=== PATIENT | female | born 1990 | race Caucasian/White ===

== ENCOUNTER 2018-09-12 11:44 | Emergency (ER) | payer SELFPAY ==
[2018-09-12] MEDS ORDERED: AMOXICILLIN/POTASSIUM CLAV 875MG/125MG TABLET PO ONE (12:19)
--- NOTE | 2018-09-12 12:21 | Emergency Department Record ---
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 Her Td is UTD and the cat's rabies shots are also UTD. She denies any numbness, tingling or weakness. MD Complaint: Animal bite Onset/Timin -: Minutes(s) Animal: Cat - Related Data Home Medications Medication Instructions Recorded Confirmed Last Taken Estradiol Cypionate 5 mg IM ASDIR 09/12/18 09/12/18 08/14/18 [Depo-Estradiol] Previous Rx's Medication Instructions Recorded Amoxicillin/Potassium Clav 1 each PO BID #14 tablet 09/12/18 [Augmentin 875Mg/125Mg] Allergies Allergy/AdvReac Type Severity Reaction Status Date / Time No Known Drug Allergies Allergy Verified 09/12/18 11:59 Travel Screening - Travel/Exposure Within Last 30 Days Have you traveled within the last 30 days?: No - Travel/Exposure Within Last Year Have you traveled outside the [place] in the last year?: No - Additonal Travel Details Have you been exposed to anyone with a communicable illness?: No - Travel Symptoms Symptom Screening: None Review of Systems Constitutional: Denies: Chills, Fever Eyes: Denies: Eye discharge ENT: Denies: Congestion Respiratory: Denies: Cough, Dyspnea Past Medical History - SOCIAL HISTORY Smoking Status: Never smoker Alcohol Use: Occasional Drug Use: None - RESPIRATORY Hx Respiratory Disorders: No - CARDIOVASCULAR Hx Cardio Disorders: No - NEURO Hx Neuro Disorders: Yes - GI Hx GI Disorders: No - Hx Genitourinary Disorders: Yes Hx UTI: Yes - ENDOCRINE Hx Endocrine Disorders: No - MUSCULOSKELETAL Hx Musculoskeletal Disorders: No - PSYCH Hx Psych Problems: No - HEMATOLOGY/ONCOLOGY Hx Hematology/Oncology Disorders: No Family Medical History Any Significant Family History?: No Physical Exam - General General Appearance: Alert, Cooperative, No acute distress - Head Head exam: Atraumatic, Normocephalic - Eye Eye exam: Normal appearance - Extremities Extremities exam: Full ROM, Tenderness. negative: Normal inspection (There are multiple very superficial bite wounds to the L hand. Rodolfo of the wounds appear deep thru the dermis. The L hand is NVI.), Joint swelling Course Vital Signs 09/12/18 11:53 Temperature 99.3 F Pulse Rate [ 85 Pulse Ox Probe] Respiratory 16 Rate Blood Pressure 112/68 [Left Arm] Pulse Ox 99 - Reevaluation(s) Reevaluation #1: The patient is doing very well. She did scrub up her L hand with a hibiclens sponge and sterile water. She is to keep the hand dry for 2 days and then obtain a wound recheck F/U in 2 days. 09/12/18 12:45 Disposition Disposition: Discharge Clinical Impression: Cat bite of hand Qualifiers: Encounter type: initial encounter Laterality: left Qualified Code(s): S61.452A - Open bite of left hand, initial encounter Disposition: Home, Self-Care Condition: (2) Stable Instructions: Animal Bite (ED) Additional Instructions: Please keep the hand clean and dry and take the Augmentin as directed. Please have the hand rechecked in 2 days to make sure there is no infection. Return to the ER for any signs of infection. Prescriptions: Amoxicillin/Potassium Clav [Augmentin 875Mg/125Mg] 1 each PO BID #14 tablet Forms: Patient Portal Access Time of Disposition: 12:49 Quality - Quality Measures Quality Measures: N/A - Blood Pressure Screening View Details: Yes Does Patient Have Any of the Following: No Blood Pressure Classification: Normal BP Reading Systolic Measurement: 112 Diastolic Measurement: 68 Screening for High Blood Pressure: < Normal BP, F/U Not Required > [G8783]
== END 2018-09-12 12:59 | disposition home or self-care (01) ==
LOC: ER 11:44
DX: S61.452A Open bite of left hand, initial encounter (principal); W55.01XA Bitten by cat, initial encounter; Y93.K9 Activity, other involving animal care; Y92.414 Local residential or business street as the place of occurrence of the external cause; Y99.0 Civilian activity done for income or pay
CPT/HCPCS: 99282; 99283

== ENCOUNTER 2018-09-13 08:42 | Observation (INO) | payer SELFPAY ==
[2018-09-13] MEDS ORDERED: AMPICILLIN SODIUM/SULBACTAM NA 3 G in 0.9 % SODIUM CHLORIDE 100ML 100 ML IVPB ONE (08:56)
--- NOTE | 2018-09-13 09:01 | Emergency Department Record ---
History of Present Illness - General Chief Complaint: Animal Bite Stated Complaint: CAT BITE Time Seen by Provider: 09/13/18 08:47 Source: Patient Mode of Arrival: Ambulatory Limitations: No limitations - History of Present Illness Initial Comments: The patient is here due to an infected cat bite to the L hand that occurred yesterday. She was bit in multiple places and did seek treatment here. Her wounds were cleansed and she was started on PO Abx's. Today the hand is swollen , tender, red and painful. Complaint: Animal bite Onset/Timin -: Days(s) Location - General: Other Animal: Cat Mechanism: Bite Pain Description: Sharp Severity scale (1-10): 8 Associated Symptoms: Erythema - Related Data Previous Rx's Medication Instructions Recorded Amoxicillin/Potassium Clav 1 each PO BID #14 tablet 09/12/18 [Augmentin 875Mg/125Mg] Allergies Allergy/AdvReac Type Severity Reaction Status Date / Time No Known Drug Allergies Allergy Verified 09/13/18 08:48 Travel Screening - Travel/Exposure Within Last 30 Days Have you traveled within the last 30 days?: No Past Medical History - SOCIAL HISTORY Smoking Status: Never smoker Alcohol Use: None Drug Use: None - RESPIRATORY Hx Respiratory Disorders: No - CARDIOVASCULAR Hx Cardio Disorders: No - NEURO Hx Neuro Disorders: Yes - GI Hx GI Disorders: No - Hx Genitourinary Disorders: Yes Hx UTI: Yes - ENDOCRINE Hx Endocrine Disorders: No - MUSCULOSKELETAL Hx Musculoskeletal Disorders: No - PSYCH Hx Psych Problems: No - HEMATOLOGY/ONCOLOGY Hx Hematology/Oncology Disorders: No Family Medical History Any Significant Family History?: No Physical Exam - General General Appearance: Alert, Oriented x3, Cooperative, No acute distress - Head Head exam: Atraumatic, Normocephalic - Eye Eye exam: Normal appearance, PERRL - Neck Neck exam: Normal inspection, Full ROM. negative: Tenderness - Respiratory Respiratory exam: Normal lung sounds bilaterally. negative: Respiratory distress - Cardiovascular Cardiovascular Exam: Regular rate, Normal rhythm, Normal heart sounds - Extremities Extremities exam: Tenderness (There is tenderness over the dorsal hand. ). negative: Normal inspection (There is dorsal L hand swelling, erythema and tenderness to the wrist. There is mild warmth. ), Full ROM (There is good ROM of the fingers with only mild pain. ) - Neurological Neurological exam: Alert. negative: Motor sensory deficit Course Vital Signs 09/13/18 08:49 Temperature 98.2 F Pulse Rate 88 Respiratory 16 Rate Blood Pressure 103/58 Pulse Ox 99 - Reevaluation(s) Reevaluation #1: Procedure note: The PW near the L 2nd MCP joint is very tender and there was significant purulence expressed from the wound and cultured. The L 2nd MCP PW was anesth. with Lido 1cc and the wound probed and lavaged. There was no further purulence expressed. 09/13/18 09:18 Reevaluation #2: I did discuss the case with Sarah and did discuss the need for admission for IV Abx's and she did accept. The patient also understands the plan. 09/13/18 09:19 Medical Decision Making - Lab Data Result diagrams: 09/13/18 09:00 09/13/18 09:00 Disposition Disposition: Admit Clinical Impression: Cellulitis Qualifiers: Site of cellulitis: other site Qualified Code(s): L03.818 - Cellulitis of other sites Disposition: Still a Patient at [facility] Decision to Admit: Admit from ER Decision to Admit Date: 09/13/18 Decision to Admit Time: 09:20 Time Discussed w/Accepting Physician: 09:20 Condition: (2) Stable Forms: Patient Portal Access Time of Disposition: 09:20 Quality - Quality Measures Quality Measures: N/A - Blood Pressure Screening View Details: Yes Does Patient Have Any of the Following: No Blood Pressure Classification: Normal BP Reading Systolic Measurement: 103 Diastolic Measurement: 58 Screening for High Blood Pressure: < Normal BP, F/U Not Required > [G8783]
[2018-09-13 09:07] LABS: BASO % 0.2 % (0-6); EOS % 0.6 % (0-6); GRAN % 77.8 % (47-80); HEMATOCRIT 39.6 % (35.0-47.0); LYMPH % 13.4 % (16-45); MEAN CELL VOLUME 95.2 fl (81-97); MEAN CORPUSCULAR HEMOGLOBIN 31.3 pg (27-33); MEAN CORPUSCULAR HGB CONC 32.8 g/dl (32-36); PLATELET COUNT 231 K/uL (130-400); RED BLOOD COUNT 4.16 M/uL (3.80-5.40); RED CELL DISTRIBUTION WIDTH 11.8 % (11.5-14.5); WHITE BLOOD COUNT W/O DIFF 12.4 K/uL (4.2-12.2)
[2018-09-13 09:18] LABS: BLOOD UREA NITROGEN 9 mg/dL (6-20); CREATININE 0.7 mg/dL (0.5-0.9); EST GLOMERULAR FILTRATION RATE > 60 mL/min
[2018-09-13 09:21] LABS: GLUCOSE,RANDOM 96 mg/dL (74-109)
[2018-09-13] MEDS ORDERED: ACETAMINOPHEN 325 MG TAB PO PRN (10:28)
[2018-09-13] MEDS ORDERED: AL HYDROX/MAG HYDROX 30ML UD PO PRN (10:28)
[2018-09-13] MEDS ORDERED: ESTRADIOL CYPIONATE 5 MG IM SCH (10:28)
[2018-09-13] MEDS: IBUPROFEN 400 MG TABLET PO PRN ×2 (10:49→19:08)
--- NOTE | 2018-09-13 10:57 | History & Physical ---
History of Present Illness - Date of Service Date of Service for History & Physical: 09/13/18 - History of Present Illness Admitting Diagnosis: 1. L Hand Cellulitis 2nd Cat Bite. History of Present Illness: Ms. Gamboa presented to the ED today for eval of an infected cat bite to the L hand that occurred yesterday. She was bit in multiple places and did seek treatment here. Her wounds were cleansed and she was started on PO Abx's ( augmentin- took 3 doses). Today the hand is swollen, tender, red and painful. In the ED, the PW near the L 2nd MCP joint is very tender and there was significant purulence expressed from the wound and cultured. The L 2nd MCP PW was anesth. with Lido 1cc and the wound probed and lavaged. There was no further purulence expressed. Pt. was admitted for observation for IV abx- unasyn. 09/13/18: Pt. is resting in bed and she presently denies pain. Plan to continue unasyn 3g q6h, will continue to reassess wound. PCP: Travel Screening - Travel/Exposure Within Last 30 Days Have you traveled within the last 30 days?: No - Travel/Exposure Within Last Year Have you traveled outside the [place] in the last year?: No - Additonal Travel Details Have you been exposed to anyone with a communicable illness?: No - Travel Symptoms Symptom Screening: None Past Medical History - SOCIAL HISTORY Smoking Status: Never smoker - RESPIRATORY Hx Respiratory Disorders: No - CARDIOVASCULAR Hx Cardio Disorders: No - NEURO Hx Neuro Disorders: Yes - GI Hx GI Disorders: No - Hx Genitourinary Disorders: Yes Hx UTI: Yes - ENDOCRINE Hx Endocrine Disorders: No - MUSCULOSKELETAL Hx Musculoskeletal Disorders: No - PSYCH Hx Psych Problems: No - HEMATOLOGY/ONCOLOGY Hx Hematology/Oncology Disorders: No Family Medical History Any Significant Family History?: No H&P Meds/Allergies - Allergies Allergies: Allergies Allergy/AdvReac Type Severity Reaction Status Date / Time No Known Drug Allergies Allergy Verified 09/13/18 08:48 - Home Medications Previous Rx's Medication Instructions Recorded Amoxicillin/Potassium Clav 1 each PO BID #14 tablet 09/12/18 [Augmentin 875Mg/125Mg] - Active Medications Active Medications: Current Medications Acetaminophen (Tylenol 325mg) 650 mg PO Q4H PRN PRN Reason: PAIN - MILD(1-4)/FEVER Al Hydroxide/Mg Hydroxide (Maalox) 30 ml PO Q4H PRN PRN Reason: ABDOMINAL PAIN Ampicillin Sodium/Sulbactam (Sodium 3 g/ Sodium Chloride) 100 mls @ 200 mls/hr IVPB Q6H MARTÍNEZ Ibuprofen (Motrin 400mg) 400 mg PO Q8H PRN PRN Reason: PAIN - MILD (1-4) Last Admin: 09/13/18 10:49 Dose: 400 mg Physical Exam - Vital Signs Vital Signs: Vital Signs - Last 24 Hrs Temp Pulse Resp BP Pulse Ox 09/13/18 08:49 98.2 F 88 16 103/58 99 - General General Appearance: Alert, Oriented x3, Cooperative, No acute distress Limitations: No limitations - Head Head exam: Atraumatic, Normocephalic - Eye Eye exam: Normal appearance, PERRL - Neck Neck exam: Normal inspection, Full ROM. negative: Tenderness - Respiratory Respiratory exam: Normal lung sounds bilaterally. negative: Respiratory distress - Cardiovascular Cardiovascular Exam: Regular rate, Normal rhythm, Normal heart sounds - Extremities Extremities exam: Tenderness (There is tenderness over the dorsal hand. ). negative: Normal inspection (There is dorsal L hand swelling, erythema and tenderness to the wrist. There is mild warmth. ), Full ROM (There is good ROM of the fingers with only mild pain. ) - Neurological Neurological exam: Alert. negative: Motor sensory deficit Results - Labs Result Diagrams: 09/13/18 09:00 09/13/18 09:00 Labs Last 24 Hours: Laboratory Results - last 24 hr 09/13/18 09/13/18 09:00 09:00 WBC 12.4 H RBC 4.16 Hgb 13.0 Hct 39.6 MCV 95.2 MCH 31.3 MCHC 32.8 RDW 11.8 Plt Count 231 MPV 10.0 Gran % 77.8 Lymphocytes % 13.4 L Monocytes % 8.0 Eosinophils % 0.6 Basophils % 0.2 Sodium 137 Potassium 3.9 Chloride 102 Carbon Dioxide 22.0 Anion Gap 13.0 BUN 9 Creatinine 0.7 Estimated GFR > 60 Random Glucose 96 Calcium 9.2 C-Reactive Protein 1.40 H VTE H&P Assessment - Risk for VTE Risk for VTE: Yes Risk Level: Very Low Risk Assessment Date: 09/13/18 Risk Assessment Time: 10:56 VTE Orders Placed or Will Be Placed: No VTE Reason for No Prophylaxis: Not Indicated (mobility not impaired) Plan - Detailed Diagnosis and Plan (1) Cellulitis Current Visit: Yes Status: Acute Qualifiers: Site of cellulitis: other site Qualified Code(s): L03.818 - Cellulitis of other sites Base Code: L03.90 - CELLULITIS, UNSPECIFIED Comment: 09/13/18: -Secondary from cat bite to left hand -Continue unasyn 3g q6h IV -Motrin 400mg q4h prn for pain -Wound culture obained in ED and pending (2) Full code status Current Visit: Yes Status: Acute Base Code: Z78.9 - OTHER SPECIFIED HEALTH STATUS Comment: 09/13/18: -Pt. is a full code
[2018-09-13] MEDS: AMPICILLIN SODIUM/SULBACTAM NA 3 G in 0.9 % SODIUM CHLORIDE 100ML 100 ML IVPB SCH ×2 (15:00→21:17)
[2018-09-14] MEDS: AMPICILLIN SODIUM/SULBACTAM NA 3 G in 0.9 % SODIUM CHLORIDE 100ML 100 ML IVPB SCH ×2 (02:51→09:26)
[2018-09-14 06:51] LABS: HEMOGLOBIN 12.3 gm/dl (11.6-16.0); MEAN CELL VOLUME 95.7 fl (81-97); MEAN CORPUSCULAR HGB CONC 32.4 g/dl (32-36); MEAN PLATELET VOLUME 10.4 fl (7.4-10.4); PLATELET COUNT 235 K/uL (130-400); RED BLOOD COUNT 3.97 M/uL (3.80-5.40); RED CELL DISTRIBUTION WIDTH 11.8 % (11.5-14.5); WHITE BLOOD COUNT W/O DIFF 10.2 K/uL (4.2-12.2)
[2018-09-14 07:01] LABS: ALB/GLOB RATIO 1.4 (1.1-1.8); ALBUMIN 4.2 g/dL (4.0-5.0); ALKALINE PHOSPHATASE 68 U/L (35-104); ALT/SGPT 9 U/L (<33); AST/SGOT 13 U/L (10.0-35.0); BLOOD UREA NITROGEN 8 mg/dL (6-20); CREATININE 0.8 mg/dL (0.5-0.9); EST GLOMERULAR FILTRATION RATE > 60 mL/min; GLUCOSE,RANDOM 109 mg/dL (74-109); TOTAL PROTEIN 7.1 g/dL (6.6-8.7)
[2018-09-14 07:04] LABS: PLATELET ESTIMATE NORMAL (NORMAL)
[2018-09-14] MEDS: IBUPROFEN 400 MG TABLET PO PRN (09:36)
--- NOTE | 2018-09-14 11:29 | Discharge Summary ---
Providers Discharge Summary Date: 09/14/18 Date of admission: 09/13/18 10:05 Expected Date of Discharge: 09/14/18 Attending physician: LAKSHMI ABDI Physical Exam - Vital Signs Vital Signs: Vital Signs - Last 24 Hrs Temp Pulse Resp BP Pulse Ox 09/14/18 11:15 97.8 F 101 H 22 112/57 87 L 09/14/18 08:20 97.7 F 101 H 18 101/63 97 09/14/18 06:32 97.9 F 90 18 108/52 99 09/14/18 03:08 97.5 F L 79 16 105/54 98 09/13/18 21:00 87 18 09/13/18 20:00 98.1 F 87 18 112/62 99 09/13/18 16:28 98.8 F 92 H 16 127/78 99 09/13/18 12:28 99.2 F 87 18 111/68 99 - General General Appearance: Alert, Oriented x3, Cooperative, No acute distress Limitations: No limitations - Head Head exam: Atraumatic, Normocephalic - Eye Eye exam: Normal appearance, PERRL - Neck Neck exam: Normal inspection, Full ROM. negative: Tenderness - Respiratory Respiratory exam: Normal lung sounds bilaterally. negative: Respiratory distress - Cardiovascular Cardiovascular Exam: Regular rate, Normal rhythm, Normal heart sounds - Extremities Extremities exam: Tenderness (There is tenderness over the dorsal hand. ). negative: Normal inspection (There is dorsal L hand swelling, erythema and tenderness to the wrist. There is mild warmth. ), Full ROM (There is good ROM of the fingers with only mild pain. ) - Neurological Neurological exam: Alert. negative: Motor sensory deficit Hospitalization - Hospitalization Admission Diagnosis: 1. L Hand Cellulitis 2nd Cat Bite. - Problem List/Discharge Diagnosis (1) Cellulitis Current Visit: Yes Status: Acute Discharge Diagnosis: Site of cellulitis: other site Qualified Code(s): L03.818 - Cellulitis of other sites Base Code: L03.90 - CELLULITIS, UNSPECIFIED Comment: 09/14/18: -Secondary from cat bite to left hand -Motrin 400mg q4h prn for pain -Wound culture obained in ED- prelim findings: rare gram neg and gram pos rods -Will d/c home with doxy 100mg bid for 10 days and clinda 300mg q6h for 7 days (2) Full code status Current Visit: Yes Status: Acute Base Code: Z78.9 - OTHER SPECIFIED HEALTH STATUS Comment: 09/14/18: -Pt. is a full code - Hospitalization Course Disposition: Home, Self-Care Hospital Course: Ms. Gamboa presented to the ED today for eval of an infected cat bite to the L hand that occurred yesterday. She was bit in multiple places and did seek treatment here. Her wounds were cleansed and she was started on PO Abx's ( augmentin- took 3 doses). Today the hand is swollen, tender, red and painful. In the ED, the PW near the L 2nd MCP joint is very tender and there was significant purulence expressed from the wound and cultured. The L 2nd MCP PW was anesth. with Lido 1cc and the wound probed and lavaged. There was no further purulence expressed. Pt. was admitted for observation for IV abx- unasyn. 09/13/18: Pt. is resting in bed and she presently denies pain. Plan to continue unasyn 3g q6h, will continue to reassess wound. 09/14/18: Pt. is resting in bed, pain and redness continue to improve. Dressing was removed and wound assessed- swelling localized to dorsal surface of hand- 2 small wounds noted- no drainage. Wound culture obained in ED- prelim findings: rare gram neg and gram pos rods. Will d/c home with doxy 100mg bid for 10 days and clinda 300mg q6h for 7 days. Recommended pt to f/u with her PCP in 7- 10 days. Abnormal Labs: Abnormal Lab Results 09/13/18 09/13/18 09/14/18 Range/Units 09:00 09:00 06:16 WBC 12.4 H (4.2-12.2) K/uL Neutrophils % 83.0 H (47-80) % Lymphocytes % 13.4 L (16-45) % Lymphocytes 7.0 L (16-45) % Sodium (136-145) mmol/L C-Reactive Protein 1.40 H (<0.5) mg/dL 09/14/18 Range/Units 06:16 WBC (4.2-12.2) K/uL Neutrophils % (47-80) % Lymphocytes % (16-45) % Lymphocytes (16-45) % Sodium 134 L (136-145) mmol/L C-Reactive Protein (<0.5) mg/dL Condition at Discharge: (2) Stable Discharge Medications - Discharge Medications Prescriptions: Clindamycin HCl [Cleocin HCl] 300 mg PO Q6H #28 cap Doxycycline Hyclate [Vibramycin] 100 mg PO BID #20 capsule Home Medications: Ambulatory Orders Estradiol Cypionate [Depo-Estradiol] 5 mg IM ASDIR 09/12/18 [Last Taken 08/14/18 ] Clindamycin HCl [Cleocin HCl] 300 mg PO Q6H #28 cap 09/14/18 [Last Taken Unknown ] Doxycycline Hyclate [Vibramycin] 100 mg PO BID #20 capsule 09/14/18 [Last Taken Unknown] Ibuprofen [Motrin] 400 mg PO Q8H PRN tablet 09/14/18 [Last Taken Unknown] Discharge Plan - Discharge Instructions Diet at Discharge: Regular Diet Wound Primary Dressing Type: Gauze Roll/Wrap Dressing Change: Daily Additional Instructions: Start clindamycin 300mg every 6 hours- take with food Start doxycycline 100mg twice daily- take with food You can use triple antibiotic ointment on the open areas of your wound and cover with gauze roll Follow up with your PCP in 7-10 days Return to the ED if symptoms worsen (worsening swelling/redness/pain/drainage or fever) Quality Measures - Quality Measures Quality Measures: Documentation of Current Medications in Medical Record, Screening for High Blood Pressure and F/U Documented - Current Medications Quality Measure: Measure #130: Documentation of Current Medications Documentation of Current Medications: <Current Medications Documented/Reviewed> [G8427] - Blood Pressure Screening Quality Measure: Screening for High Blood Pressure and Follow-Up Documented Does Patient Have Any of the Following: No Blood Pressure Classification: Normal BP Reading Systolic Measurement: 103 Diastolic Measurement: 58 Screening for High Blood Pressure: < Normal BP, F/U Not Required > [G8783] - Elder Abuse Suspicion Index EASI Reference Information: Maribel CAMARGO, Sean C, Jonas D, Porfirio Quick.Development and validation of a tool to assist physicians identification of elder abuse: The Elder Abuse Suspicion Index (EASI ). Journal of Elder Abuse and Neglect, 2008; 20 (3): 276-300.
[2018-09-14] MEDS ORDERED: DOXYCYCLINE HYCLATE 100 MG CAPSULE PO SCH (11:30)
[2018-09-14] MEDS ORDERED: CLINDAMYCIN 150 MG CAP PO SCH (11:30)
== END 2018-09-14 13:10 | disposition home or self-care (01) ==
LOC: ER 08:42 → MEDSURG 10:05
PROVIDERS: ADMIT Internal Medicine; ATTEND Internal Medicine
DX: L03.114 Cellulitis of left upper limb (principal); W55.01XD Bitten by cat, subsequent encounter
CPT/HCPCS: 10060 ×2; 99285 ×2; 96365; 85025; 86140; 80048; 80053; 85027; G0378 ×2; J0295 ×2; 99217; 99220